=== PATIENT | female | born 2000 | race Caucasian/White ===

== ENCOUNTER 2025-06-12 19:52 | Outpatient (CLI) | payer OTHER, BC, SELFPAY | END 2025-06-12 19:53 | disposition home or self-care (01) | PROVIDERS: Visit Provider Emergency Medicine | DX: S69.91XA Unspecified injury of right wrist, hand and finger(s), initial encounter (principal); V49.40XA Driver injured in collision with unspecified motor vehicles in traffic accident, initial encounter; Y92.410 Unspecified street and highway as the place of occurrence of the external cause | CPT/HCPCS: A0425; A0427 ==